=== PATIENT | male | born 1975 | race Caucasian/White ===

== ENCOUNTER 2017-05-01 12:47 | Inpatient (IN) | payer OTHER ==
[2017-05-01] MEDS ORDERED: MAGNESIUM HYDROX 2400MG/30ML ORAL SUSPENSION 30 ML CUP PO PRN (13:09)
[2017-05-01] MEDS ORDERED: LOPERAMIDE HCL 2 MG CAPSULE PO PRN (13:09)
[2017-05-01] MEDS ORDERED: MENTHOL/PHENOL 1 EACH UD MM PRN (13:09)
[2017-05-01] MEDS ORDERED: IBUPROFEN 400 MG TABLET (FP) PO PRN (13:09)
[2017-05-01] MEDS ORDERED: MAGNESIUM CITRATE 300 ML BOTTLE PO PRN (13:09)
[2017-05-01] MEDS ORDERED: P-EPHED 60MG/TRIPROLIDI 2.5MG TABLET PO PRN (13:09)
[2017-05-01] MEDS ORDERED: guaiFENesin/D-METHORPHAN HB 10 ML UNIT-DOSE CUPS PO PRN (13:09)
[2017-05-01] MEDS ORDERED: ALBUTEROL SO4 18 GM HFA INHALER IH PRN (13:54)
--- NOTE | 2017-05-01 13:57 | HP ---
[facility] Rehab Assess/Revision - Admission History Admitted to Rehab from: [facility] Date of Admission to Rehab: 05/01/17 - Vital signs Vital Signs: Vital Signs Period Temp Pulse Resp BP Sys/Aldana Pulse Ox Last 24 Hr 97.1 F 78 18 107/64 - Findings Detox History & Physical reviewed: Yes Concur with findings: Yes Comments/Additional Findings: ADMITTED TO REHAB TODAY FOR AFTERCARE IN STABLE CONDITION. Inpatient Rehab Admission - Initial Determination Are CD services needed?: Yes Free of communicable disease: Yes Not in need of hospitalization: Yes - Rehab Admission Criteria Patient is meeting Inpatient Rehab admission criteria:: Yes
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
[2017-05-01] MEDS: NICOTINE 21 MG/24 HOURS TOPICAL PATCH TD SCH (15:26)
[2017-05-01] MEDS: NAPROXEN 250 MG TABLET (FP) PO SCH (21:33)
[2017-05-01] MEDS: THIAMINE HCL 100 MG TABLET (FP) PO SCH (21:34)
[2017-05-01] MEDS: SUVOREXANT 10 MG TABLET PO SCH (21:34)
[2017-05-01] MEDS ORDERED: MELATONIN 5 MG TABLETS PO PRN (22:00)
[2017-05-02] MEDS ORDERED: METHADONE HCL 10 MG TABLET ONE (05:53)
[2017-05-02] MEDS ORDERED: METHADONE HCL 40 MG DISPERSABLE TABLET ONE (05:54)
[2017-05-02] MEDS ORDERED: METHADONE HCL 10 MG TABLET PO SCH (06:00)
[2017-05-02] MEDS: METHADONE 80 MG, METHADONE 30 MG PO SCH (06:22)
[2017-05-02] MEDS: ESCITALOPRAM OXALATE 10 MG TABLET (FP) PO SCH (09:57)
[2017-05-02] MEDS: cloNIDine HCL 0.1 MG TABLET PO SCH (09:58)
[2017-05-02] MEDS: ELVITEG/COB/EMTRI/TENOF (GENVOYA) TABLET (NF) PO SCH (09:58)
[2017-05-02] MEDS: PRENATAL VITAMINS W/ FOLIC ACID TABLET (FP) PO SCH (09:58)
[2017-05-02] MEDS: NAPROXEN 250 MG TABLET (FP) PO SCH ×2 (09:59→21:31)
[2017-05-02] MEDS: NICOTINE 21 MG/24 HOURS TOPICAL PATCH TD SCH (10:01)
[2017-05-02] MEDS: ACETAMINOPHEN 325 MG TABLET (FP) PO PRN (10:58)
--- NOTE | 2017-05-02 16:53 | PN ---
[facility] Progress Note Note: Patient presents with complaint of diarrhea x 3-4 days. States immodium ineffective. Obj: abdomen soft, BS+, NT Gen: alert and oriented x 3, in NAD. A/P Diarrhea Will add Pepto bismul to regimen continue oral fluids monitor clinically
[2017-05-02] MEDS: MAG HYDROX/AL HYDROX/SIMETH 30 ML UNIT-DOSE CUP PO PRN (18:24)
[2017-05-02] MEDS: SUVOREXANT 10 MG TABLET PO SCH (21:32)
[2017-05-02] MEDS: THIAMINE HCL 100 MG TABLET (FP) PO SCH (21:32)
[2017-05-02] MEDS: GABAPENTIN 300 MG CAPSULE (FP) PO SCH (22:26)
[2017-05-03] MEDS ORDERED: METHADONE HCL 10 MG TABLET ONE (05:24)
[2017-05-03] MEDS ORDERED: METHADONE HCL 40 MG DISPERSABLE TABLET ONE (05:25)
[2017-05-03] MEDS: METHADONE 80 MG, METHADONE 30 MG PO SCH (06:09)
[2017-05-03] MEDS: GABAPENTIN 300 MG CAPSULE (FP) PO SCH ×2 (10:14→22:04)
[2017-05-03] MEDS: PRENATAL VITAMINS W/ FOLIC ACID TABLET (FP) PO SCH (10:15)
[2017-05-03] MEDS: NICOTINE 21 MG/24 HOURS TOPICAL PATCH TD SCH (10:15)
[2017-05-03] MEDS: cloNIDine HCL 0.1 MG TABLET PO SCH (10:15)
[2017-05-03] MEDS: ELVITEG/COB/EMTRI/TENOF (GENVOYA) TABLET (NF) PO SCH (10:15)
[2017-05-03] MEDS: BISMUTH SUBSALICYLATE 262 MG/15 ML BTL PO SCH (10:15)
[2017-05-03] MEDS: ESCITALOPRAM OXALATE 10 MG TABLET (FP) PO SCH (10:15)
[2017-05-03] MEDS: NAPROXEN 250 MG TABLET (FP) PO SCH ×2 (10:16→22:03)
--- NOTE | 2017-05-03 14:15 | PN ---
[facility] Progress Note Note: Patient reports he wishes to change the time that he receives his methadone from 6AM to 10AM. Patient reprots that's how he takes his medication when he is in the community. Reports when he takes the medciation bedofer breakfast it makes his stomach "burn." Vital Signs Temperature 97.8 F 05/03/17 07:24 Pulse Rate 50 L 05/03/17 07:24 Respiratory Rate 18 05/03/17 07:24 Blood Pressure 111/78 05/03/17 07:24 O2 Sat by Pulse Oximetry (%) Methadone schedule changed from 6AM to 10AM Continue to monitor
[2017-05-03] MEDS: THIAMINE HCL 100 MG TABLET (FP) PO SCH (22:03)
[2017-05-03] MEDS: SUVOREXANT 10 MG TABLET PO SCH (22:04)
[2017-05-03] MEDS: hydrOXYzine PAMOATE 50 MG CAPSULE (FP) PO PRN (22:04)
[2017-05-04] MEDS ORDERED: METHADONE HCL 10 MG TABLET ONE (08:53)
[2017-05-04] MEDS ORDERED: METHADONE HCL 40 MG DISPERSABLE TABLET ONE (08:54)
[2017-05-04] MEDS: cloNIDine HCL 0.1 MG TABLET PO SCH (10:20)
[2017-05-04] MEDS: PRENATAL VITAMINS W/ FOLIC ACID TABLET (FP) PO SCH (10:20)
[2017-05-04] MEDS: NAPROXEN 250 MG TABLET (FP) PO SCH ×2 (10:20→21:34)
[2017-05-04] MEDS: METHADONE 80 MG, METHADONE 30 MG PO SCH (10:21)
[2017-05-04] MEDS: ESCITALOPRAM OXALATE 10 MG TABLET (FP) PO SCH (10:21)
[2017-05-04] MEDS: GABAPENTIN 300 MG CAPSULE (FP) PO SCH ×2 (10:21→21:34)
[2017-05-04] MEDS: NICOTINE 21 MG/24 HOURS TOPICAL PATCH TD SCH (10:25)
[2017-05-04] MEDS: ELVITEG/COB/EMTRI/TENOF (GENVOYA) TABLET (NF) PO SCH (10:26)
[2017-05-04] MEDS: BISMUTH SUBSALICYLATE 262 MG/15 ML BTL PO SCH (10:26)
[2017-05-04] MEDS: NICOTINE POLACRILEX 4 MG GUM BUC PRN (10:27)
[2017-05-04] MEDS ORDERED: PT OWN MED DRAWER 7, Y5N ONE (14:52)
[2017-05-04] MEDS: MAG HYDROX/AL HYDROX/SIMETH 30 ML UNIT-DOSE CUP PO PRN ×2 (15:40→22:24)
[2017-05-04] MEDS: SUVOREXANT 10 MG TABLET PO SCH (21:34)
[2017-05-04] MEDS: THIAMINE HCL 100 MG TABLET (FP) PO SCH (21:34)
[2017-05-05] MEDS ORDERED: METHADONE HCL 10 MG TABLET ONE (08:34)
[2017-05-05] MEDS ORDERED: METHADONE HCL 40 MG DISPERSABLE TABLET ONE (08:36)
[2017-05-05] MEDS: METHADONE 80 MG, METHADONE 30 MG PO SCH (10:39)
[2017-05-05] MEDS: cloNIDine HCL 0.1 MG TABLET PO SCH (10:41)
[2017-05-05] MEDS: ESCITALOPRAM OXALATE 10 MG TABLET (FP) PO SCH (10:41)
[2017-05-05] MEDS: GABAPENTIN 300 MG CAPSULE (FP) PO SCH ×2 (10:42→21:57)
[2017-05-05] MEDS: NAPROXEN 250 MG TABLET (FP) PO SCH ×2 (10:42→21:57)
[2017-05-05] MEDS: BISMUTH SUBSALICYLATE 262 MG/15 ML BTL PO SCH (10:43)
[2017-05-05] MEDS: PRENATAL VITAMINS W/ FOLIC ACID TABLET (FP) PO SCH (10:43)
[2017-05-05] MEDS: NICOTINE 21 MG/24 HOURS TOPICAL PATCH TD SCH (10:43)
[2017-05-05] MEDS: ELVITEG/COB/EMTRI/TENOF (GENVOYA) TABLET (NF) PO SCH (10:50)
[2017-05-05] MEDS: THIAMINE HCL 100 MG TABLET (FP) PO SCH (21:55)
[2017-05-05] MEDS: SUVOREXANT 10 MG TABLET PO SCH (21:56)
[2017-05-05] MEDS: hydrOXYzine PAMOATE 50 MG CAPSULE (FP) PO PRN (21:57)
[2017-05-05] MEDS: NICOTINE POLACRILEX 4 MG GUM BUC PRN (21:59)
[2017-05-06] MEDS ORDERED: METHADONE HCL 10 MG TABLET ONE (09:09)
[2017-05-06] MEDS ORDERED: METHADONE HCL 40 MG DISPERSABLE TABLET ONE (09:12)
[2017-05-06] MEDS: METHADONE 80 MG, METHADONE 30 MG PO SCH (10:51)
[2017-05-06] MEDS: NAPROXEN 250 MG TABLET (FP) PO SCH ×2 (10:53→21:23)
[2017-05-06] MEDS: cloNIDine HCL 0.1 MG TABLET PO SCH (10:53)
[2017-05-06] MEDS: PRENATAL VITAMINS W/ FOLIC ACID TABLET (FP) PO SCH (10:54)
[2017-05-06] MEDS: GABAPENTIN 300 MG CAPSULE (FP) PO SCH ×2 (10:54→21:24)
[2017-05-06] MEDS: ELVITEG/COB/EMTRI/TENOF (GENVOYA) TABLET (NF) PO SCH (10:55)
[2017-05-06] MEDS: ESCITALOPRAM OXALATE 10 MG TABLET (FP) PO SCH (10:56)
[2017-05-06] MEDS: NICOTINE 21 MG/24 HOURS TOPICAL PATCH TD SCH (10:56)
[2017-05-06] MEDS: NICOTINE POLACRILEX 4 MG GUM BUC PRN ×2 (10:58→21:25)
[2017-05-06] MEDS: BISMUTH SUBSALICYLATE 262 MG/15 ML BTL PO SCH (10:58)
[2017-05-06] MEDS: SUVOREXANT 10 MG TABLET PO SCH (21:23)
[2017-05-06] MEDS: THIAMINE HCL 100 MG TABLET (FP) PO SCH (21:23)
[2017-05-07] MEDS ORDERED: METHADONE HCL 10 MG TABLET ONE (08:19)
[2017-05-07] MEDS ORDERED: METHADONE HCL 40 MG DISPERSABLE TABLET ONE (08:21)
[2017-05-07] MEDS: METHADONE 80 MG, METHADONE 30 MG PO SCH (10:25)
[2017-05-07] MEDS: PRENATAL VITAMINS W/ FOLIC ACID TABLET (FP) PO SCH (10:27)
[2017-05-07] MEDS: cloNIDine HCL 0.1 MG TABLET PO SCH (10:27)
[2017-05-07] MEDS: GABAPENTIN 300 MG CAPSULE (FP) PO SCH ×2 (10:27→21:58)
[2017-05-07] MEDS: NAPROXEN 250 MG TABLET (FP) PO SCH ×2 (10:28→21:58)
[2017-05-07] MEDS: ELVITEG/COB/EMTRI/TENOF (GENVOYA) TABLET (NF) PO SCH (10:30)
[2017-05-07] MEDS: ESCITALOPRAM OXALATE 10 MG TABLET (FP) PO SCH (10:30)
[2017-05-07] MEDS: NICOTINE POLACRILEX 4 MG GUM BUC PRN ×2 (10:31→22:20)
[2017-05-07] MEDS: BISMUTH SUBSALICYLATE 262 MG/15 ML BTL PO SCH (10:31)
[2017-05-07] MEDS: NICOTINE 21 MG/24 HOURS TOPICAL PATCH TD SCH (10:31)
--- NOTE | 2017-05-07 11:05 | PN ---
[facility] Progress Note Note: Patient requested gingerale with meals as it helps with his indigestion. Pt has no hx of DM. Awake and oriented x 3. In NAD. Will order one can of gingerale PO with meals BID. Continue to monitor clinically.
[2017-05-07] MEDS: THIAMINE HCL 100 MG TABLET (FP) PO SCH (21:57)
[2017-05-07] MEDS: SUVOREXANT 10 MG TABLET PO SCH (21:58)
[2017-05-08] MEDS ORDERED: METHADONE HCL 10 MG TABLET ONE (09:05)
[2017-05-08] MEDS ORDERED: METHADONE HCL 40 MG DISPERSABLE TABLET ONE (09:06)
[2017-05-08] MEDS: METHADONE 80 MG, METHADONE 30 MG PO SCH (10:30)
[2017-05-08] MEDS: NAPROXEN 250 MG TABLET (FP) PO SCH ×2 (10:31→21:33)
[2017-05-08] MEDS: GABAPENTIN 300 MG CAPSULE (FP) PO SCH ×2 (10:32→21:33)
[2017-05-08] MEDS: ESCITALOPRAM OXALATE 10 MG TABLET (FP) PO SCH (10:32)
[2017-05-08] MEDS: cloNIDine HCL 0.1 MG TABLET PO SCH (10:33)
[2017-05-08] MEDS: ELVITEG/COB/EMTRI/TENOF (GENVOYA) TABLET (NF) PO SCH (10:33)
[2017-05-08] MEDS: BISMUTH SUBSALICYLATE 262 MG/15 ML BTL PO SCH (10:35)
[2017-05-08] MEDS: PRENATAL VITAMINS W/ FOLIC ACID TABLET (FP) PO SCH (10:35)
[2017-05-08] MEDS: NICOTINE 21 MG/24 HOURS TOPICAL PATCH TD SCH (10:35)
[2017-05-08] MEDS: NICOTINE POLACRILEX 4 MG GUM BUC PRN ×2 (10:35→21:34)
[2017-05-08] MEDS: THIAMINE HCL 100 MG TABLET (FP) PO SCH (21:32)
[2017-05-08] MEDS: hydrOXYzine PAMOATE 50 MG CAPSULE (FP) PO PRN (21:33)
[2017-05-09] MEDS ORDERED: METHADONE HCL 10 MG TABLET ONE (08:56)
[2017-05-09] MEDS ORDERED: METHADONE HCL 40 MG DISPERSABLE TABLET ONE (08:57)
[2017-05-09] MEDS: cloNIDine HCL 0.1 MG TABLET PO SCH (10:36)
[2017-05-09] MEDS: METHADONE 80 MG, METHADONE 30 MG PO SCH (10:36)
[2017-05-09] MEDS: GABAPENTIN 300 MG CAPSULE (FP) PO SCH ×2 (10:36→21:37)
[2017-05-09] MEDS: ESCITALOPRAM OXALATE 10 MG TABLET (FP) PO SCH (10:38)
[2017-05-09] MEDS: ELVITEG/COB/EMTRI/TENOF (GENVOYA) TABLET (NF) PO SCH (10:38)
[2017-05-09] MEDS: NAPROXEN 250 MG TABLET (FP) PO SCH ×2 (10:38→21:38)
[2017-05-09] MEDS: PRENATAL VITAMINS W/ FOLIC ACID TABLET (FP) PO SCH (10:38)
[2017-05-09] MEDS: NICOTINE 21 MG/24 HOURS TOPICAL PATCH TD SCH (10:39)
[2017-05-09] MEDS: BISMUTH SUBSALICYLATE 262 MG/15 ML BTL PO SCH (10:39)
[2017-05-09] MEDS: NICOTINE POLACRILEX 4 MG GUM BUC PRN ×2 (10:42→21:40)
[2017-05-09] MEDS: ACETAMINOPHEN 325 MG TABLET (FP) PO PRN ×2 (14:30→23:48)
[2017-05-09] MEDS: hydrOXYzine PAMOATE 50 MG CAPSULE (FP) PO PRN (21:37)
[2017-05-09] MEDS: THIAMINE HCL 100 MG TABLET (FP) PO SCH (21:38)
[2017-05-10] MEDS ORDERED: METHADONE HCL 40 MG DISPERSABLE TABLET ONE (09:12)
[2017-05-10] MEDS ORDERED: METHADONE HCL 10 MG TABLET ONE (09:12)
[2017-05-10] MEDS: METHADONE 80 MG, METHADONE 30 MG PO SCH (10:25)
[2017-05-10] MEDS: cloNIDine HCL 0.1 MG TABLET PO SCH (10:25)
[2017-05-10] MEDS: NAPROXEN 250 MG TABLET (FP) PO SCH ×2 (10:26→22:03)
[2017-05-10] MEDS: ESCITALOPRAM OXALATE 10 MG TABLET (FP) PO SCH (10:27)
[2017-05-10] MEDS: PRENATAL VITAMINS W/ FOLIC ACID TABLET (FP) PO SCH (10:28)
[2017-05-10] MEDS: NICOTINE 21 MG/24 HOURS TOPICAL PATCH TD SCH (10:29)
[2017-05-10] MEDS: NICOTINE POLACRILEX 4 MG GUM BUC PRN ×2 (10:30→22:05)
[2017-05-10] MEDS: GABAPENTIN 300 MG CAPSULE (FP) PO SCH ×2 (10:30→22:02)
[2017-05-10] MEDS: BISMUTH SUBSALICYLATE 262 MG/15 ML BTL PO SCH (10:30)
[2017-05-10] MEDS: ELVITEG/COB/EMTRI/TENOF (GENVOYA) TABLET (NF) PO SCH (10:50)
[2017-05-10] MEDS: THIAMINE HCL 100 MG TABLET (FP) PO SCH (22:03)
[2017-05-11] MEDS: hydrOXYzine PAMOATE 50 MG CAPSULE (FP) PO PRN (00:27)
[2017-05-11] MEDS: PRENATAL VITAMINS W/ FOLIC ACID TABLET (FP) PO SCH (10:33)
[2017-05-11] MEDS: NAPROXEN 250 MG TABLET (FP) PO SCH ×2 (10:33→21:34)
[2017-05-11] MEDS: GABAPENTIN 300 MG CAPSULE (FP) PO SCH ×2 (10:34→21:35)
[2017-05-11] MEDS: ESCITALOPRAM OXALATE 10 MG TABLET (FP) PO SCH (10:34)
[2017-05-11] MEDS: cloNIDine HCL 0.1 MG TABLET PO SCH (10:34)
[2017-05-11] MEDS ORDERED: METHADONE HCL 10 MG TABLET ONE (10:36)
[2017-05-11] MEDS ORDERED: METHADONE HCL 40 MG DISPERSABLE TABLET ONE (10:37)
[2017-05-11] MEDS: METHADONE 80 MG, METHADONE 30 MG PO SCH (10:38)
[2017-05-11] MEDS: ELVITEG/COB/EMTRI/TENOF (GENVOYA) TABLET (NF) PO SCH (10:38)
[2017-05-11] MEDS: BISMUTH SUBSALICYLATE 262 MG/15 ML BTL PO SCH (10:39)
[2017-05-11] MEDS: NICOTINE 21 MG/24 HOURS TOPICAL PATCH TD SCH (10:40)
[2017-05-11] MEDS: NICOTINE POLACRILEX 4 MG GUM BUC PRN ×2 (10:41→21:36)
--- NOTE | 2017-05-11 14:13 | PN ---
[facility] Progress Note Note: Patient presents with scratch to left hand after pulling something from garbage Vital Signs Temperature 98.4 F 05/11/17 07:23 Pulse Rate 68 05/11/17 07:23 Respiratory Rate 18 05/11/17 07:23 Blood Pressure 138/88 05/11/17 07:23 O2 Sat by Pulse Oximetry (%) Obj: Skin: small scratch noted on left anterior hand. No redness or swelling. A/P: will order one time application of bacitracin to site as pt refused ongoing application until healed. continue to monitor clinically
[2017-05-11] MEDS ORDERED: BACITRACIN 0.9 GM PACKET TP ONE (14:35)
[2017-05-11] MEDS: THIAMINE HCL 100 MG TABLET (FP) PO SCH (21:34)
[2017-05-12] MEDS ORDERED: METHADONE HCL 10 MG TABLET ONE (09:21)
[2017-05-12] MEDS ORDERED: METHADONE HCL 40 MG DISPERSABLE TABLET ONE (09:21)
[2017-05-12] MEDS: METHADONE 80 MG, METHADONE 30 MG PO SCH (10:25)
[2017-05-12] MEDS: ESCITALOPRAM OXALATE 10 MG TABLET (FP) PO SCH (10:26)
[2017-05-12] MEDS: cloNIDine HCL 0.1 MG TABLET PO SCH (10:26)
[2017-05-12] MEDS: NAPROXEN 250 MG TABLET (FP) PO SCH ×2 (10:26→21:47)
[2017-05-12] MEDS: PRENATAL VITAMINS W/ FOLIC ACID TABLET (FP) PO SCH (10:26)
[2017-05-12] MEDS: GABAPENTIN 300 MG CAPSULE (FP) PO SCH ×2 (10:27→21:57)
[2017-05-12] MEDS: ELVITEG/COB/EMTRI/TENOF (GENVOYA) TABLET (NF) PO SCH (10:29)
[2017-05-12] MEDS: NICOTINE 21 MG/24 HOURS TOPICAL PATCH TD SCH (10:30)
[2017-05-12] MEDS: BISMUTH SUBSALICYLATE 262 MG/15 ML BTL PO SCH (10:30)
[2017-05-12] MEDS: NICOTINE POLACRILEX 4 MG GUM BUC PRN ×2 (10:30→21:50)
[2017-05-12] MEDS: THIAMINE HCL 100 MG TABLET (FP) PO SCH (21:47)
[2017-05-12] MEDS: hydrOXYzine PAMOATE 50 MG CAPSULE (FP) PO PRN (21:49)
[2017-05-13] MEDS ORDERED: METHADONE HCL 10 MG TABLET ONE (09:08)
[2017-05-13] MEDS ORDERED: METHADONE HCL 40 MG DISPERSABLE TABLET ONE (09:09)
[2017-05-13] MEDS: cloNIDine HCL 0.1 MG TABLET PO SCH (10:07)
[2017-05-13] MEDS: METHADONE 80 MG, METHADONE 30 MG PO SCH (10:08)
[2017-05-13] MEDS: GABAPENTIN 300 MG CAPSULE (FP) PO SCH ×2 (10:08→21:19)
[2017-05-13] MEDS: ESCITALOPRAM OXALATE 10 MG TABLET (FP) PO SCH (10:08)
[2017-05-13] MEDS: NAPROXEN 250 MG TABLET (FP) PO SCH ×2 (10:08→21:19)
[2017-05-13] MEDS: BISMUTH SUBSALICYLATE 262 MG/15 ML BTL PO SCH (10:09)
[2017-05-13] MEDS: ELVITEG/COB/EMTRI/TENOF (GENVOYA) TABLET (NF) PO SCH (10:09)
[2017-05-13] MEDS: NICOTINE 21 MG/24 HOURS TOPICAL PATCH TD SCH (10:09)
[2017-05-13] MEDS: PRENATAL VITAMINS W/ FOLIC ACID TABLET (FP) PO SCH (10:09)
[2017-05-13] MEDS: NICOTINE POLACRILEX 4 MG GUM BUC PRN ×3 (10:12→17:53)
[2017-05-13] MEDS: ACETAMINOPHEN 325 MG TABLET (FP) PO PRN (15:45)
[2017-05-13] MEDS: THIAMINE HCL 100 MG TABLET (FP) PO SCH (21:20)
[2017-05-14] MEDS ORDERED: METHADONE HCL 10 MG TABLET ONE (09:04)
[2017-05-14] MEDS ORDERED: METHADONE HCL 40 MG DISPERSABLE TABLET ONE (09:05)
[2017-05-14] MEDS: METHADONE 80 MG, METHADONE 30 MG PO SCH (10:50)
[2017-05-14] MEDS: NAPROXEN 250 MG TABLET (FP) PO SCH ×2 (10:52→21:28)
[2017-05-14] MEDS: GABAPENTIN 300 MG CAPSULE (FP) PO SCH ×2 (10:52→21:29)
[2017-05-14] MEDS: PRENATAL VITAMINS W/ FOLIC ACID TABLET (FP) PO SCH (10:53)
[2017-05-14] MEDS: cloNIDine HCL 0.1 MG TABLET PO SCH (10:53)
[2017-05-14] MEDS: ELVITEG/COB/EMTRI/TENOF (GENVOYA) TABLET (NF) PO SCH (10:54)
[2017-05-14] MEDS: NICOTINE 21 MG/24 HOURS TOPICAL PATCH TD SCH (10:55)
[2017-05-14] MEDS: ESCITALOPRAM OXALATE 10 MG TABLET (FP) PO SCH (10:55)
[2017-05-14] MEDS: BISMUTH SUBSALICYLATE 262 MG/15 ML BTL PO SCH (10:55)
[2017-05-14] MEDS: NICOTINE POLACRILEX 4 MG GUM BUC PRN ×2 (11:15→21:30)
[2017-05-14] MEDS ORDERED: cloNIDine HCL 0.1 MG TABLET PO SCH (11:40)
--- NOTE | 2017-05-14 13:05 | PN ---
[facility] Progress Note Note: Patient requested to have d/c of clonidine as he does not have withdrawal symptoms. Pt is alert and oriented x 3. In NAD. Ambulating in unit, stable. Clonidine d/c as requested.
[2017-05-14] MEDS: THIAMINE HCL 100 MG TABLET (FP) PO SCH (21:28)
[2017-05-14] MEDS: hydrOXYzine PAMOATE 50 MG CAPSULE (FP) PO PRN (21:30)
[2017-05-15 07:01] VITALS: BP 125/85; PULSE 65; TEMP 98.9
[2017-05-15] MEDS ORDERED: METHADONE HCL 40 MG DISPERSABLE TABLET ONE (08:32)
[2017-05-15] MEDS ORDERED: METHADONE HCL 10 MG TABLET ONE (08:32)
--- NOTE | 2017-05-15 09:58 | PN ---
Psychiatric Progress Note Vital Signs: Vital Signs Period Temp Pulse Resp BP Sys/Aldana Pulse Ox Last 24 Hr 98.9 F 65-77 16-18 125-130/80-85 Date of Session: 05/15/17 Chief Complaint:: discharge visit HPI: Patient has addressed alcohol,opioid, cocaine, cannabis, nicotine,sedative hypnotic dependence comorbid substance induced mood disorder. ROS: HIV +, bronchial asthma, hepatitis C, anemia, peripheral neuropathy medically managed. Current Medications: Active Medications Generic Name Dose Route Start Last Admin Trade Name Freq PRN Reason Stop Dose Admin Acetaminophen 650 mg 05/01/17 13:09 05/13/17 15:45 Tylenol - PO 650 mg Q4H PRN Administration FEVER Al Hydroxide/Mg Hydroxide 30 ml 05/01/17 13:09 05/04/17 22:24 Mylanta Oral Suspension - PO 30 ml Q6H PRN Administration DYSPEPSIA Albuterol Sulfate 2 puff 05/01/17 13:54 05/07/17 22:19 Ventolin Hfa Inhaler - IH 2 puff Q4H PRN Administration ASTHMA Bismuth Subsalicylate 30 ml 05/03/17 10:00 05/14/17 10:55 Pepto-Bismol Liquid - PO Not Given DAILY GIULIANO Elvitegravir/Cobicis/Emtricit/Tenof 1 tab 05/02/17 10:00 05/14/17 10:54 Genvoya (Non-Formulary) PO 1 tab DAILY GIULIANO Administration Escitalopram Oxalate 5 mg 05/02/17 10:00 05/14/17 10:55 Lexapro - PO 5 mg DAILY GIULIANO Administration Eucalyptus/Menthol/Phenol/Sorbitol 1 each 05/01/17 13:09 Cepastat Lozenge - MM Q4H PRN SORE THROAT Gabapentin 600 mg 05/02/17 22:00 05/14/17 21:29 Neurontin - PO 600 mg BID GIULIANO Administration Guaifenesin 10 ml 05/01/17 13:09 Robitussin Dm - PO Q6H PRN COUGH Hydroxyzine Pamoate 50 mg 05/01/17 13:09 05/14/17 21:30 Vistaril - PO 50 mg Q4H PRN Administration AGITATION Loperamide HCl 4 mg 05/01/17 13:09 Imodium - PO Q6H PRN DIARRHEA Magnesium Citrate 300 ml 05/01/17 13:09 Citroma - PO Q48H PRN CONSTIPATION Magnesium Hydroxide 30 ml 05/01/17 13:09 Milk Of Magnesia - PO DAILY PRN CONSTIPATION Melatonin 5 mg 05/01/17 22:00 05/11/17 21:36 Melatonin PO 5 mg HS PRN Administration INSOMNIA Methadone HCl 80 mg/ Methadone 110 mg 05/10/17 10:00 05/14/17 10:50 HCl 30 mg PO 05/17/17 09:59 110 mg DAILY@1000 GIULIANO Administration Naproxen 250 mg 05/01/17 22:00 05/14/17 21:28 Naprosyn - PO 250 mg BID GIULIANO Administration Nicotine 21 mg 05/01/17 14:00 05/14/17 10:55 Nicoderm Patch - TD Not Given DAILY GIULIANO Nicotine Polacrilex 4 mg 05/01/17 13:09 05/14/17 21:30 Nicorette Gum - BUC 4 mg Q2H PRN Administration NICOTINE REPLACEMENT RX Multivit/Folic Acid/Iron 1 tab 05/02/17 10:00 05/14/17 10:53 Vitamins (Sjr) - PO 1 tab DAILY GIULIANO Administration Pseudoephedrine/Triprolidine 1 combo 05/01/17 13:09 Actifed - PO TID PRN NASAL CONGESTION Thiamine HCl 100 mg 05/01/17 22:00 05/14/17 21:28 Vitamin B1 - PO 100 mg HS GIULIANO Administration Current Side Effect: No Lab tests ordered: No Lab tests reviewed: Yes Provider note:: Patient has completed today his treatment and met his identified goals, will continue to address his issues at [facility] term inpatient treatment program. He gained insights into his problems and motivated to continue maintain abstinence and to be adherent to every aspects of his aftercare plans. Patient continues to finding Lexapro helpfull, no side- effects reported, scripts provided for 30 days, patient was encouraged to utilize allsupports available to prevent relapses, stable for discharge. Total face to face time:: 30 Mental Status Exam - Mental Status Exam Alert and Oriented to: Time, Place, Person Cognitive Function: Good Patient Appearance: Well Groomed Mood: Hopeful Affect: Appropriate, Mood Congruent Patient Behavior: Appropriate, Cooperative Speech Pattern: Clear, Appropriate Voice Loudness: Normal Thought Process: Intact, Goal Oriented Thought Disorder: Not Present Hallucinations: Denies Suicidal Ideation: Denies Homicidal Ideation: Denies Insight/Judgement: Fair Sleep: Fair Appetite: Good Muscle strength/Tone: Normal Gait/Station: Normal Psychiatric Treatment Plan - Problem List (1) Sedative hypnotic or anxiolytic dependence Current Visit: Yes (2) Alcohol dependence Current Visit: Yes (3) Nicotine dependence Current Visit: Yes Qualifiers: Nicotine product type: cigarettes Substance use status: in withdrawal Qualified Code(s): F17.213 - Nicotine dependence, cigarettes, with withdrawal (4) Cannabis dependence Current Visit: No (5) Cocaine dependence Current Visit: No (6) Opioid dependence Current Visit: No (7) Substance induced mood disorder Current Visit: No (8) Opioid dependence on agonist therapy Current Visit: No (9) PTSD (post-traumatic stress disorder) Current Visit: No Comment: Historical diagnosis.
[2017-05-15] MEDS: PRENATAL VITAMINS W/ FOLIC ACID TABLET (FP) PO SCH (10:27)
[2017-05-15] MEDS: ESCITALOPRAM OXALATE 10 MG TABLET (FP) PO SCH (10:28)
[2017-05-15] MEDS: NAPROXEN 250 MG TABLET (FP) PO SCH (10:28)
[2017-05-15] MEDS: GABAPENTIN 300 MG CAPSULE (FP) PO SCH (10:29)
[2017-05-15] MEDS: METHADONE 80 MG, METHADONE 30 MG PO SCH (10:30)
[2017-05-15] MEDS: ELVITEG/COB/EMTRI/TENOF (GENVOYA) TABLET (NF) PO SCH (10:32)
[2017-05-15] MEDS: BISMUTH SUBSALICYLATE 262 MG/15 ML BTL PO SCH (10:34)
[2017-05-15] MEDS: NICOTINE 21 MG/24 HOURS TOPICAL PATCH TD SCH (10:34)
== END 2017-05-15 10:55 | disposition home or self-care (01) | DRG 772 ==
LOC: YASAS 12:47 → Y5N 12:48
PROVIDERS: ADMIT Psychiatry & Neurology Psychiatry; ATTEND Psychiatry & Neurology Psychiatry
PROC: HZ42ZZZ Group Counseling for Substance Abuse Treatment, Cognitive-Behavioral (ICD-10-PCS; principal; 2017-05-01)
DX: F11.23 Opioid dependence with withdrawal (principal); F13.230 Sedative, hypnotic or anxiolytic dependence with withdrawal, uncomplicated; F10.230 Alcohol dependence with withdrawal, uncomplicated; F14.20 Cocaine dependence, uncomplicated; F12.20 Cannabis dependence, uncomplicated; F17.210 Nicotine dependence, cigarettes, uncomplicated; Z21 Asymptomatic human immunodeficiency virus [HIV] infection status; F19.24 Other psychoactive substance dependence with psychoactive substance-induced mood disorder; F43.10 Post-traumatic stress disorder, unspecified; D64.9 Anemia, unspecified; B18.2 Chronic viral hepatitis C; G62.9 Polyneuropathy, unspecified
CPT/HCPCS: J0735

== ENCOUNTER 2017-10-16 11:08 | Inpatient (IN) | payer OTHER ==
[2017-10-16 14:05] VITALS: BMI 25.0
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
[2017-10-16] MEDS ORDERED: ALBUTEROL SO4 8 GM HFA INHALER IH PRN (19:41)
[2017-10-16] MEDS ORDERED: diazePAM 5 MG TABLET PO ONE (19:49)
[2017-10-16] MEDS ORDERED: P-EPHED 60MG/TRIPROLIDI 2.5MG TABLET PO PRN (19:49)
[2017-10-16] MEDS ORDERED: MENTHOL/PHENOL 1 EACH UD MM PRN (19:49)
[2017-10-16] MEDS ORDERED: MAG HYDROX/AL HYDROX/SIMETH 30 ML UNIT-DOSE CUP PO PRN (19:49)
[2017-10-16] MEDS ORDERED: LOPERAMIDE HCL 2 MG CAPSULE PO PRN (19:49)
[2017-10-16] MEDS ORDERED: MAGNESIUM HYDROX 2400MG/30ML ORAL SUSPENSION 30 ML CUP PO PRN (19:49)
[2017-10-16] MEDS ORDERED: guaiFENesin/D-METHORPHAN HB 10 ML UNIT-DOSE CUPS PO PRN (19:49)
[2017-10-16] MEDS ORDERED: MAGNESIUM CITRATE 300 ML BOTTLE PO PRN (19:49)
[2017-10-16] MEDS ORDERED: MELATONIN 5 MG TABLETS PO PRN (22:00)
[2017-10-16] MEDS: GABAPENTIN 300 MG CAPSULE (FP) PO SCH (22:45)
[2017-10-16] MEDS: THIAMINE HCL 100 MG TABLET (FP) PO SCH (22:46)
[2017-10-16] MEDS: cloNIDine HCL 0.1 MG TABLET PO SCH (22:46)
[2017-10-16] MEDS: diazePAM 5 MG TABLET PO SCH (22:47)
[2017-10-16] MEDS: ACETAMINOPHEN 325 MG TABLET (FP) PO PRN (22:47)
[2017-10-17 01:00] LABS: URINE APPEARANCE CLEAR; URINE BILIRUBIN NEGATIVE (<2.0 mg/dL); URINE COLOR YELLOW; URINE GLUCOSE (UA) NEGATIVE (NEGATIVE); URINE KETONE NEGATIVE (NEGATIVE); URINE LEUK ESTERASE TRACE (NEGATIVE); URINE NITRITE NEGATIVE (NEGATIVE); URINE PROTEIN NEGATIVE (NEGATIVE)
[2017-10-17 01:10] LABS: EPI CELLS RARE /HPF (FEW); URINE BACTERIA RARE /hpf (NONE SEEN); URINE HYALINE CAST 11 /lpf; URINE MUCUS MODERATE
[2017-10-17] MEDS: GABAPENTIN 300 MG CAPSULE (FP) PO SCH ×4 (04:27→21:28)
[2017-10-17] MEDS: diazePAM 5 MG TABLET PO SCH ×3 (05:54→21:27)
[2017-10-17] MEDS: ACETAMINOPHEN 325 MG TABLET (FP) PO PRN (05:54)
[2017-10-17] MEDS ORDERED: METHADONE HCL 10 MG TABLET PO ONE (08:24)
[2017-10-17] MEDS ORDERED: METHADONE 80 MG, METHADONE 30 MG, METHADONE 5 MG PO ONE (08:35)
[2017-10-17] MEDS ORDERED: METHADONE HCL 5 MG TABLET ONE (09:06)
[2017-10-17] MEDS ORDERED: METHADONE HCL 10 MG TABLET ONE (09:06)
[2017-10-17] MEDS ORDERED: METHADONE HCL 40 MG DISPERSABLE TABLET ONE (09:07)
[2017-10-17 09:59] LABS: HEMATOCRIT 32.5 % (35.4-49); HEMOGLOBIN 10.7 GM/dL (11.7-16.9); MCH 31.5 pg (25.7-33.7); MCHC 32.9 g/dl (32.0-35.9); MEAN CELL VOLUME 95.8 fl (80-96); PLATELET COUNT 183 K/MM3 (134-434); RDW 15.7 % (11.9-15.9); WHITE BLOOD COUNT 4.9 K/mm3 (4.0-10.0)
[2017-10-17 10:14] LABS: ALBUMIN 3.2 g/dl (3.4-5.0); ALK PHOS 79 U/L (45-117); ANION GAP 9 MMOL/L (8-16); CALCIUM 8.3 mg/dL (8.5-10.1); CHLORIDE 107 mmol/L (98-107); CO2 27 mmol/L (21-32); GLUCOSE,RANDOM 101 mg/dL (74-106); POTASSIUM 3.9 mmol/L (3.5-5.1); SGOT/AST 31 U/L (15-37); SGPT/ALT 35 U/L (12-78); SODIUM 143 mmol/L (136-145)
[2017-10-17 10:16] LABS: BILIRUBIN,TOTAL 0.3 mg/dL (0.2-1.0); BLOOD UREA NITROGEN 12 mg/dL (7-18); CREATININE 0.8 mg/dL (0.7-1.3); TOT PROT 6.4 g/dl (6.4-8.2)
[2017-10-17] MEDS: diazePAM 5 MG TABLET PO PRN ×2 (10:44→17:42)
[2017-10-17] MEDS: NICOTINE 14 MG/24 HOURS TOPICAL PATCH TD SCH (10:44)
[2017-10-17] MEDS: cloNIDine HCL 0.1 MG TABLET PO SCH ×2 (10:44→21:27)
[2017-10-17] MEDS: PRENATAL VITAMINS W/ FOLIC ACID TABLET (FP) PO SCH (10:44)
[2017-10-17] MEDS: NICOTINE POLACRILEX 2 MG GUM BC PRN (10:47)
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
--- NOTE | 2017-10-17 11:45 | EKG ---
Test Reason : Blood Pressure : / mmHG Vent. Rate : 090 BPM Atrial Rate : 090 BPM P-R Int : 120 ms QRS Dur : 078 ms QT Int : 368 ms P-R-T Axes : 041 066 068 degrees QTc Int : 450 ms NORMAL SINUS RHYTHM NORMAL ECG WHEN COMPARED WITH ECG OF 27-APR-2017 20:21, NO SIGNIFICANT CHANGE WAS FOUND Confirmed by CARRIE BUCK MD ([id number]) on 10/17/2017 11:45:25 AM Referred By: Confirmed By:CARRIE BUCK MD
[2017-10-17] MEDS: ASCORBIC ACID 500 MG TABLET (FP) PO SCH (12:58)
[2017-10-17] MEDS: IBUPROFEN 400 MG TABLET (FP) PO PRN ×2 (12:59→17:44)
--- NOTE | 2017-10-17 15:12 | PN ---
S CIWA - CIWA Score Nausea/Vomitin-No Nausea/No Vomiting Muscle Tremors: 4-Moderate,w/Arms Extend Anxiety: 5 Agitation: 4-Moderately Restless Paroxysmal Sweats: No Perspiration Orientation: 0-Oriented Tacttile Disturbances: 0-None Auditory Disturbances: 0-None Visual Disturbances: 0-None Headache: 0-None Present CIWA-Ar Total Score: 13 BHS Progress Note (SOAP) Subjective: ANXIETY,RESTLESSNESS,AGITATIONS, CHILLS,TREMORS. Objective: 10/17/17 15:11 Vital Signs 10/17/17 10/17/17 09:12 13:21 Temperature 98.4 F 97.1 F L Pulse Rate 99 H 96 H Respiratory 20 20 Rate Blood Pressure 135/80 125/78 Laboratory Tests 10/16/17 10/17/17 10/17/17 23:22 07:00 07:00 WBC 4.9 RBC 3.40 L Hgb 10.7 L Hct 32.5 L D MCV 95.8 MCH 31.5 MCHC 32.9 RDW 15.7 Plt Count 183 MPV 9.0 Sodium 143 Potassium 3.9 Chloride 107 Carbon Dioxide 27 Anion Gap 9 BUN 12 Creatinine 0.8 Creat Clearance w eGFR > 60 Random Glucose 101 D Calcium 8.3 L Total Bilirubin 0.3 AST 31 D ALT 35 Alkaline Phosphatase 79 Total Protein 6.4 Albumin 3.2 L Urine Color Yellow Urine Appearance Clear Urine pH 6.0 Ur Specific [place] 1.011 Urine Protein Negative Urine Glucose (UA) Negative Urine Ketones Negative Urine Blood Negative Urine Nitrite Negative Urine Bilirubin Negative Urine Urobilinogen 2.0 Ur Leukocyte Esterase Trace Urine WBC (Auto) 1 Urine RBC (Auto) <1 Ur Epithelial Cells Rare Urine Bacteria Rare Hyaline Casts 11 Urine Mucus Moderate RPR Titer 10/17/17 07:00 WBC RBC Hgb Hct MCV MCH MCHC RDW Plt Count MPV Sodium Potassium Chloride Carbon Dioxide Anion Gap BUN Creatinine Creat Clearance w eGFR Random Glucose Calcium Total Bilirubin AST ALT Alkaline Phosphatase Total Protein Albumin Urine Color Urine Appearance Urine pH Ur Specific [place] Urine Protein Urine Glucose (UA) Urine Ketones Urine Blood Urine Nitrite Urine Bilirubin Urine Urobilinogen Ur Leukocyte Esterase Urine WBC (Auto) Urine RBC (Auto) Ur Epithelial Cells Urine Bacteria Hyaline Casts Urine Mucus RPR Titer Nonreactive Assessment: 10/17/17 15:11 WITHDRAWAL SX Plan: CONTINUE DETOX
[2017-10-17] MEDS: FERROUS SO4 325 MG TABLET (FP) PO SCH (15:36)
[2017-10-17] MEDS: THIAMINE HCL 100 MG TABLET (FP) PO SCH (21:27)
[2017-10-17] MEDS: ZOLPIDEM TARTRATE 10 MG TABLET (PARK CARE ONLY) PO PRN (21:27)
[2017-10-18] MEDS ORDERED: METHADONE HCL 40 MG DISPERSABLE TABLET ONE (04:22)
[2017-10-18] MEDS ORDERED: METHADONE HCL 5 MG TABLET ONE (04:22)
[2017-10-18] MEDS ORDERED: METHADONE HCL 10 MG TABLET PO SCH (06:00)
[2017-10-18] MEDS: METHADONE 120 MG, METHADONE 5 MG PO SCH (06:26)
[2017-10-18] MEDS: diazePAM 5 MG TABLET PO PRN ×3 (06:27→19:31)
[2017-10-18] MEDS: GABAPENTIN 300 MG CAPSULE (FP) PO SCH ×3 (06:27→22:05)
[2017-10-18] MEDS: diazePAM 5 MG TABLET PO SCH ×2 (10:06→22:04)
[2017-10-18] MEDS: cloNIDine HCL 0.1 MG TABLET PO SCH ×2 (10:06→22:04)
[2017-10-18] MEDS: FERROUS SO4 325 MG TABLET (FP) PO SCH (10:06)
[2017-10-18] MEDS: ASCORBIC ACID 500 MG TABLET (FP) PO SCH (10:06)
[2017-10-18] MEDS: NICOTINE 14 MG/24 HOURS TOPICAL PATCH TD SCH (10:06)
[2017-10-18] MEDS: PRENATAL VITAMINS W/ FOLIC ACID TABLET (FP) PO SCH (10:06)
[2017-10-18] MEDS: NICOTINE POLACRILEX 2 MG GUM BC PRN ×4 (10:09→22:07)
[2017-10-18] MEDS: IBUPROFEN 400 MG TABLET (FP) PO PRN (15:11)
--- NOTE | 2017-10-18 15:32 | PN ---
[facility] CIWA - CIWA Score Nausea/Vomitin-No Nausea/No Vomiting Muscle Tremors: None Anxiety: 1-Mildly Anxious Agitation: 1-Slight > Activity Paroxysmal Sweats: 1-Minimal Palms Moist Orientation: 0-Oriented Tacttile Disturbances: 0-None Auditory Disturbances: 0-None Visual Disturbances: 0-None Headache: 0-None Present CIWA-Ar Total Score: 3 S COWS - Scale Resting Pulse: 0= HI 80 or Below Sweatin= Chills/Flushing Restless Observation: 1= Difficult to Sit Still Pupil Size: 0= Normal to Room Light Bone or Joint Aches: 0= None Runny Nose/ Eye Tearin= None GI Upset > 30mins: 0= None Tremor Observation of Outstretched Hands: 0= None Yawning Observation: 0= None Anxiety or Irritability: 1=Feels Anxious/Irritable Goose Flesh Skin: 0=Smooth Skin COWS Score: 3 S Progress Note (SOAP) Subjective: PATIENT PRESENTS ANXIOUS, MILD SWEATS, PACING IN HALLWAY. C/O RASH TO FEET Objective: 10/18/17 15:30 Vital Signs Temperature 97.3 F L 10/18/17 13:52 Pulse Rate 71 10/18/17 13:52 Respiratory Rate 18 10/18/17 13:52 Blood Pressure 124/75 10/18/17 13:52 O2 Sat by Pulse Oximetry (%) Laboratory Tests 10/16/17 10/17/17 10/17/17 23:22 07:00 07:00 WBC 4.9 RBC 3.40 L Hgb 10.7 L Hct 32.5 L D MCV 95.8 MCH 31.5 MCHC 32.9 RDW 15.7 Plt Count 183 MPV 9.0 Sodium 143 Potassium 3.9 Chloride 107 Carbon Dioxide 27 Anion Gap 9 BUN 12 Creatinine 0.8 Creat Clearance w eGFR > 60 Random Glucose 101 D Calcium 8.3 L Total Bilirubin 0.3 AST 31 D ALT 35 Alkaline Phosphatase 79 Total Protein 6.4 Albumin 3.2 L Urine Color Yellow Urine Appearance Clear Urine pH 6.0 Ur Specific [place] 1.011 Urine Protein Negative Urine Glucose (UA) Negative Urine Ketones Negative Urine Blood Negative Urine Nitrite Negative Urine Bilirubin Negative Urine Urobilinogen 2.0 Ur Leukocyte Esterase Trace Urine WBC (Auto) 1 Urine RBC (Auto) <1 Ur Epithelial Cells Rare Urine Bacteria Rare Hyaline Casts 11 Urine Mucus Moderate RPR Titer 10/17/17 07:00 WBC RBC Hgb Hct MCV MCH MCHC RDW Plt Count MPV Sodium Potassium Chloride Carbon Dioxide Anion Gap BUN Creatinine Creat Clearance w eGFR Random Glucose Calcium Total Bilirubin AST ALT Alkaline Phosphatase Total Protein Albumin Urine Color Urine Appearance Urine pH Ur Specific [place] Urine Protein Urine Glucose (UA) Urine Ketones Urine Blood Urine Nitrite Urine Bilirubin Urine Urobilinogen Ur Leukocyte Esterase Urine WBC (Auto) Urine RBC (Auto) Ur Epithelial Cells Urine Bacteria Hyaline Casts Urine Mucus RPR Titer Nonreactive SKIN: WARM AND MOIST CAR: S1S2 RESP CTA BL EXT: FULL ROM NO EDEMA, MILD RASH TO FEET 10/18/17 15:32 Assessment: 10/18/17 15:31 WITHDRAWAL SYNDROME ATHLETES FOOT 10/18/17 15:32 Plan: CONTINUE DETOX PER PROTOCOL TINACTIN FOOT CREAM ORDERED.
[2017-10-18] MEDS: THIAMINE HCL 100 MG TABLET (FP) PO SCH (22:04)
[2017-10-18] MEDS: ZOLPIDEM TARTRATE 10 MG TABLET (PARK CARE ONLY) PO PRN (22:04)
[2017-10-18] MEDS: TOLNAFTATE 1% CREAM 15 GM TUBE TP SCH (22:05)
[2017-10-19] MEDS ORDERED: METHADONE HCL 5 MG TABLET ONE (04:21)
[2017-10-19] MEDS ORDERED: METHADONE HCL 40 MG DISPERSABLE TABLET ONE (04:21)
[2017-10-19] MEDS: METHADONE 120 MG, METHADONE 5 MG PO SCH (05:25)
[2017-10-19] MEDS: GABAPENTIN 300 MG CAPSULE (FP) PO SCH ×3 (05:26→21:45)
[2017-10-19] MEDS: diazePAM 5 MG TABLET PO PRN ×3 (05:41→17:48)
[2017-10-19] MEDS: FERROUS SO4 325 MG TABLET (FP) PO SCH (10:25)
[2017-10-19] MEDS: cloNIDine HCL 0.1 MG TABLET PO SCH ×2 (10:25→21:46)
[2017-10-19] MEDS: NICOTINE 14 MG/24 HOURS TOPICAL PATCH TD SCH (10:25)
[2017-10-19] MEDS: ASCORBIC ACID 500 MG TABLET (FP) PO SCH (10:25)
[2017-10-19] MEDS: PRENATAL VITAMINS W/ FOLIC ACID TABLET (FP) PO SCH (10:25)
[2017-10-19] MEDS: diazePAM 5 MG TABLET PO SCH ×2 (10:26→21:46)
[2017-10-19] MEDS: TOLNAFTATE 1% CREAM 15 GM TUBE TP SCH ×2 (10:26→21:47)
[2017-10-19] MEDS: NICOTINE POLACRILEX 2 MG GUM BC PRN (10:28)
--- NOTE | 2017-10-19 10:52 | PN ---
[facility] Progress Note Note: Vital Signs Temperature 97.9 F 10/19/17 09:10 Pulse Rate 78 10/19/17 09:10 Respiratory Rate 18 10/19/17 09:10 Blood Pressure 113/69 10/19/17 09:10 O2 Sat by Pulse Oximetry (%) Laboratory Last Values WBC 4.9 K/mm3 (4.0-10.0) 10/17/17 07:00 RBC 3.40 M/mm3 (4.00-5.60) L 10/17/17 07:00 Hgb 10.7 GM/dL (11.7-16.9) L 10/17/17 07:00 Hct 32.5 % (35.4-49) L D 10/17/17 07:00 MCV 95.8 fl (80-96) 10/17/17 07:00 MCH 31.5 pg (25.7-33.7) 10/17/17 07:00 MCHC 32.9 g/dl (32.0-35.9) 10/17/17 07:00 RDW 15.7 % (11.9-15.9) 10/17/17 07:00 Plt Count 183 K/MM3 (134-434) 10/17/17 07:00 MPV 9.0 fl (7.5-11.1) 10/17/17 07:00 Sodium 143 mmol/L (136-145) 10/17/17 07:00 Potassium 3.9 mmol/L (3.5-5.1) 10/17/17 07:00 Chloride 107 mmol/L (98-107) 10/17/17 07:00 Carbon Dioxide 27 mmol/L (21-32) 10/17/17 07:00 Anion Gap 9 MMOL/L (8-16) 10/17/17 07:00 BUN 12 mg/dL (7-18) 10/17/17 07:00 Creatinine 0.8 mg/dL (0.7-1.3) 10/17/17 07:00 Creat Clearance w eGFR > 60 (>60) 10/17/17 07:00 Random Glucose 101 mg/dL (74-106) D 10/17/17 07:00 Calcium 8.3 mg/dL (8.5-10.1) L 10/17/17 07:00 Total Bilirubin 0.3 mg/dL (0.2-1.0) 10/17/17 07:00 AST 31 U/L (15-37) D 10/17/17 07:00 ALT 35 U/L (12-78) 10/17/17 07:00 Alkaline Phosphatase 79 U/L (45-117) 10/17/17 07:00 Total Protein 6.4 g/dl (6.4-8.2) 10/17/17 07:00 Albumin 3.2 g/dl (3.4-5.0) L 10/17/17 07:00 Urine Color Yellow 10/16/17 23:22 Urine Appearance Clear 10/16/17 23:22 Urine pH 6.0 (5.0-8.0) 10/16/17 23:22 Ur Specific [place] 1.011 (1.001-1.035) 10/16/17 23:22 Urine Protein Negative (NEGATIVE) 10/16/17 23:22 Urine Glucose (UA) Negative (NEGATIVE) 10/16/17 23:22 Urine Ketones Negative (NEGATIVE) 10/16/17 23:22 Urine Blood Negative (NEGATIVE) 10/16/17 23:22 Urine Nitrite Negative (NEGATIVE) 10/16/17 23:22 Urine Bilirubin Negative (<2.0 mg/dL) 10/16/17 23:22 Urine Urobilinogen 2.0 mg/dL (0.2-1.0) 10/16/17 23:22 Ur Leukocyte Esterase Trace (NEGATIVE) 10/16/17 23:22 Urine WBC (Auto) 1 /hpf (3-5) 10/16/17 23:22 Urine RBC (Auto) <1 /hpf (0-3) 10/16/17 23:22 Ur Epithelial Cells Rare /HPF (FEW) 10/16/17 23:22 Urine Bacteria Rare /hpf (NONE SEEN) 10/16/17 23:22 Hyaline Casts 11 /lpf 10/16/17 23:22 Urine Mucus Moderate 10/16/17 23:22 RPR Titer Nonreactive (NONREACTIVE) 10/17/17 07:00 c/o of hip, back pain, interrupted sleep Aox3 no distress no adventitious breath sounds full ROM ambulating in unit with cane, + back pain back pain withdrawal sx flexeril PRN lidocaine patch increase PO fluids continue to monitor
[2017-10-19] MEDS: CYCLOBENZAPRINE HCL 5 MG TABLET PO SCH ×2 (13:46→21:46)
[2017-10-19] MEDS: THIAMINE HCL 100 MG TABLET (FP) PO SCH (21:45)
[2017-10-19] MEDS: LIDOCAINE PATCH REMOVAL MC SCH (21:46)
[2017-10-19] MEDS: ZOLPIDEM TARTRATE 10 MG TABLET (PARK CARE ONLY) PO PRN (21:46)
[2017-10-20] MEDS ORDERED: METHADONE HCL 5 MG TABLET ONE (04:11)
[2017-10-20] MEDS ORDERED: METHADONE HCL 40 MG DISPERSABLE TABLET ONE (04:12)
[2017-10-20] MEDS: CYCLOBENZAPRINE HCL 5 MG TABLET PO SCH ×3 (05:37→21:37)
[2017-10-20] MEDS: GABAPENTIN 300 MG CAPSULE (FP) PO SCH ×3 (05:37→21:38)
[2017-10-20] MEDS: hydrOXYzine PAMOATE 50 MG CAPSULE (FP) PO PRN (05:37)
[2017-10-20] MEDS: METHADONE 120 MG, METHADONE 5 MG PO SCH (05:37)
[2017-10-20] MEDS ORDERED: diazePAM 5 MG TABLET PO SCH (10:00)
[2017-10-20] MEDS ORDERED: LIDOCAINE 5% TOPICAL PATCH TP SCH (10:00)
[2017-10-20] MEDS: TOLNAFTATE 1% CREAM 15 GM TUBE TP SCH ×2 (10:29→21:38)
[2017-10-20] MEDS: PRENATAL VITAMINS W/ FOLIC ACID TABLET (FP) PO SCH (10:29)
[2017-10-20] MEDS: FERROUS SO4 325 MG TABLET (FP) PO SCH (10:29)
[2017-10-20] MEDS: ASCORBIC ACID 500 MG TABLET (FP) PO SCH (10:30)
[2017-10-20] MEDS: NICOTINE 14 MG/24 HOURS TOPICAL PATCH TD SCH (10:30)
[2017-10-20] MEDS: ZOLPIDEM TARTRATE 10 MG TABLET (PARK CARE ONLY) PO PRN (21:37)
[2017-10-20] MEDS: LIDOCAINE PATCH REMOVAL MC SCH (21:58)
[2017-10-20] MEDS: THIAMINE HCL 100 MG TABLET (FP) PO SCH (21:58)
[2017-10-20] MEDS ORDERED: OLANZapine 10 MG TABLET PO SCH (22:00)
[2017-10-21] MEDS ORDERED: METHADONE HCL 5 MG TABLET ONE (04:08)
[2017-10-21] MEDS ORDERED: METHADONE HCL 40 MG DISPERSABLE TABLET ONE (04:09)
[2017-10-21] MEDS: CYCLOBENZAPRINE HCL 5 MG TABLET PO SCH (05:33)
[2017-10-21] MEDS: hydrOXYzine PAMOATE 50 MG CAPSULE (FP) PO PRN (05:33)
[2017-10-21] MEDS: METHADONE 120 MG, METHADONE 5 MG PO SCH (05:34)
[2017-10-21] MEDS: GABAPENTIN 300 MG CAPSULE (FP) PO SCH (05:34)
[2017-10-21 09:46] VITALS: BP 125/80; PULSE 120; TEMP 97
--- NOTE | 2017-10-21 12:27 | DS ---
[facility] Detox Discharge Summary Admission Date: 10/16/17 Discharge Date: 10/21/17 - History Present History: Cannabis Dependence, Cocaine Dependence, Opioid Dependence, Sedative Dependence, Pcp Dependence Pertinent Past History: Asthma HIV HTN Neuropathy Anemia Hepatitis C - Physical Exam Results Vital Signs: Vital Signs Temperature 97 F L 10/21/17 09:45 Pulse Rate 120 H 10/21/17 09:45 Respiratory Rate 10/21/17 09:45 Blood Pressure 125/80 10/21/17 09:45 O2 Sat by Pulse Oximetry (%) - Treatment Hospital Course: Detox Protocol Followed, Detoxed Safely, Responded well, Discharged Condition Good - Medication Discharge Medications: Ambulatory Orders Ascorbic Acid [Vitamin C -] 500 mg PO DAILY 01/04/16 Cholecalciferol (Vitamin D3) [Vitamin D3] 400 unit PO DAILY 01/04/16 hydrOXYzine PAMOATE [Vistaril -] 25 mg PO BID PRN #30 capsule 01/07/16 Olanzapine [ZyPREXA -] 10 mg PO HS #30 tablet 04/30/17 Albuterol Sulfate Inhaler - [Ventolin HFA Inhaler -] 2 inh PO Q4H PRN #1 inhaler 05/15/17 Elviteg/Cob/Emtri/Tenof Alafen [Genvoya (Non-Formulary)] 1 tablet PO DAILY #30 tablet 05/15/17 Escitalopram Oxalate [Lexapro -] 5 mg PO DAILY #30 tablet 05/15/17 Gabapentin [Neurontin -] 300 mg PO Q8H 10/16/17 cloNIDine HCL [Catapres -] 0.1 mg PO BID 10/16/17 Olanzapine [Zyprexa -] 10 mg PO HS #30 tablet 10/17/17 - Diagnosis (1) Anemia Status: Chronic (2) Cannabis dependence Status: Chronic (3) Cocaine dependence Status: Chronic (4) Insomnia Status: Acute (5) Nicotine dependence Status: Chronic Qualifiers: Nicotine product type: cigarettes Substance use status: in withdrawal Qualified Code(s): F17.213 - Nicotine dependence, cigarettes, with withdrawal (6) PCP dependence Status: Chronic (7) Uncomplicated sedative, hypnotic or anxiolytic withdrawal Status: Acute (8) Asthma Status: Chronic Qualifiers: Asthma severity: mild Asthma persistence: unspecified Asthma complication type: uncomplicated Qualified Code(s): J45.909 - Unspecified asthma, uncomplicated (9) HIV (human immunodeficiency virus infection) Status: Chronic (10) Hepatitis C Status: Chronic Qualifiers: Viral hepatitis chronicity: chronic Hepatic coma status: without hepatic coma Qualified Code(s): B18.2 - Chronic viral hepatitis C (11) Hypertension Status: Chronic Qualifiers: Hypertension type: essential hypertension Qualified Code(s): I10 - Essential (primary) hypertension (12) Neuropathy Status: Chronic (13) Opioid dependence on agonist therapy Status: Acute (14) PTSD (post-traumatic stress disorder) Status: Chronic - AMA Did Patient Leave Against Medical Advice: No (F/U with your PCP within 1-2 weeks )
== END 2017-10-21 11:22 | disposition home or self-care (01) | DRG 773 ==
LOC: YASAS 11:08 → Y3N 20:36
PROC: HZ2ZZZZ Detoxification Services for Substance Abuse Treatment (ICD-10-PCS; principal; 2017-10-16)
DX: F10.230 Alcohol dependence with withdrawal, uncomplicated (principal); F11.20 Opioid dependence, uncomplicated; F13.230 Sedative, hypnotic or anxiolytic dependence with withdrawal, uncomplicated; F14.20 Cocaine dependence, uncomplicated; F12.20 Cannabis dependence, uncomplicated; F16.20 Hallucinogen dependence, uncomplicated; F17.213 Nicotine dependence, cigarettes, with withdrawal; F43.10 Post-traumatic stress disorder, unspecified; F31.9 Bipolar disorder, unspecified; F41.0 Panic disorder [episodic paroxysmal anxiety]; Z21 Asymptomatic human immunodeficiency virus [HIV] infection status; G47.00 Insomnia, unspecified; I10 Essential (primary) hypertension; G62.9 Polyneuropathy, unspecified; J45.909 Unspecified asthma, uncomplicated; B18.2 Chronic viral hepatitis C; D64.9 Anemia, unspecified; R26.89 Other abnormalities of gait and mobility; Z99.89 Dependence on other enabling machines and devices; S80.02XA Contusion of left knee, initial encounter; S80.01XA Contusion of right knee, initial encounter; X58.XXXA Exposure to other specified factors, initial encounter; Y93.9 Activity, unspecified; Y92.89 Other specified places as the place of occurrence of the external cause; Y99.8 Other external cause status; Z91.5 Personal history of self-harm; Z63.4 Disappearance and death of family member
CPT/HCPCS: 36415; 80053; 81003; 81015; 85027; 86593; 93005; 93010; J0735